=== PATIENT | female | born 1950 | race Caucasian/White ===

== ENCOUNTER 2024-04-04 18:47 | Inpatient (IN) | payer MEDICARE, SELFPAY ==
[2024-04-04] VITALS (20 sets, daily range): BP systolic 69–117; BP diastolic 42–69; PULSE 54–128; RESP 12–21; TEMP 36.4–36.7; O2SAT 94–100; BMI 24.7; BMI 25.4
--- NOTE | 2024-04-04 18:59 | EKG12_ITS ---
Test Reason : CP Blood Pressure : / mmHG Vent. Rate : 123 BPM Atrial Rate : 000 BPM P-R Int : 000 ms QRS Dur : 090 ms QT Int : 384 ms P-R-T Axes : 000 032 -18 degrees QTc Int : 549 ms Atrial fibrillation with rapid ventricular response with premature ventricular or aberrantly conducte d complexes Nonspecific ST and T wave abnormality Abnormal ECG Confirmed by Anselmo Cote ([id number]), editor managing newspaper YUSRA ALCANTARA ([id number]) on 04/06/2024 8:00:46 AM Referred By: RICHARD Confirmed By:Anselmo Cote
--- NOTE | 2024-04-04 19:04 | EX.ED.DYSGE1 ---
HPI <CLAUDIA Hyde - Last Filed: 04/04/24 21:13> History of Present Illness Chief Complaint: Chest Pain Narrative Narrative: 73-year-old female with past medical history of hypertension, hyperlipidemia states she has felt ill for about a week. She is tired and lightheaded with positional changes. Yesterday she had one large episode of loose stools. Today she was feeling more lightheaded and states she fell onto the bathroom floor and when she woke up she was sore in her sternum. She was able to get up and ambulate and when her children visited she did not look well and was sweaty and pale so they called EMS. She states she has not been eating and drinking much and did not take her medication this morning. No blood thinners. She reports anterior chest pain only from the fall. No shortness of breath. No recent fever, chills, cough, abdominal pain or urinary symptoms. PFSH <CLAUDIA Hyde - Last Filed: 04/04/24 21:13> [facility] Home Medications ?Medication ?Instructions ?Recorded ?Last Taken ?Type amlodipine 5 mg tablet 5 mg PO DAILY htn 04/04/24 Unknown History lisinopril 20 mg tablet 20 mg PO DAILY htn 04/04/24 Unknown History Allergy/AdvReac Type Severity Reaction Status Date / Time No Known Allergies Allergy Verified 04/04/24 18:51 Social History Smoking Status: Never smoker ROS <CLAUDIA Hyde Last Filed: 04/04/24 21:13> ROS ED ROS Narrative Constitutional: Negative for fever, chills. CVS: Positive for syncope. Negative for palpitations, chest pain. Respiratory: Negative for shortness of breath, cough. GI: Positive for diarrhea. Negative for abdominal pain, nausea, vomiting, melena, hematochezia. : Negative for dysuria. Neuro: Negative for headache. EXAM <CLAUDIA Hyde Last Filed: 04/04/24 21:13> Physical Exam Narrative Exam Narrative: CONST: Patient lying in bed appears pale in no distress. EYES: Normal inspection. ENT: Normal inspection, moist mucous membranes. NECK: Normal inspection. RESP: No respiratory distress, CTAB. CVS: Tachycardic irregularly irregular rhythm, no murmur, no gallop. ABD: Soft and nontender, no guarding or rebound, nondistended. SKIN: Color normal, no rash, warm, dry, intact. EXTREMITIES: Normal appearance, no pedal edema. NEURO: Alert and answering questions appropriately. PSYCH: Normal affect. Const Vital Signs: 04/04/24 18:48 04/04/24 18:51 04/04/24 19:26 Temperature 97.6 F L Temperature Source Oral Pulse Rate 128 H 99 Respiratory Rate 18 14 Respiratory Effort Normal Blood Pressure 94/44 L Blood Pressure Mean 60 Pulse Ox 94 100 Oxygen Delivery Method Room Air 04/04/24 19:30 04/04/24 19:45 04/04/24 19:47 Temperature Temperature Source Pulse Rate 88 91 104 H Respiratory Rate 15 14 15 Respiratory Effort Blood Pressure 100/48 L 96/60 96/60 Blood Pressure Mean 65 69 72 Pulse Ox 100 98 100 Oxygen Delivery Method Nasal Cannula 04/04/24 20:00 04/04/24 20:00 04/04/24 20:15 Temperature Temperature Source Pulse Rate 103 H 88 111 H Respiratory Rate 19 H 14 15 Respiratory Effort Blood Pressure 90/42 L 92/43 L 90/42 L Blood Pressure Mean 58 57 58 Pulse Ox 100 100 100 Oxygen Delivery Method Room Air 04/04/24 20:30 04/04/24 20:33 04/04/24 20:45 Temperature 97.7 F L Temperature Source Pulse Rate 101 H 93 107 H Respiratory Rate 13 13 16 Respiratory Effort Blood Pressure 76/59 L 76/59 L Blood Pressure Mean 67 64 Pulse Ox 100 100 Oxygen Delivery Method 04/04/24 20:46 04/04/24 20:46 Temperature Temperature Source Pulse Rate 101 H 112 H Respiratory Rate 19 H 16 Respiratory Effort Blood Pressure 81/69 L 81/65 L Blood Pressure Mean 73 73 Pulse Ox 98 100 Oxygen Delivery Method Nasal Cannula <Dr. David Fong MD - Last Filed: 04/04/24 20:21> Physical Exam Const Vital Signs: 04/04/24 18:48 04/04/24 18:51 04/04/24 19:26 Temperature 97.6 F L Temperature Source Oral Pulse Rate 128 H 99 Respiratory Rate 18 14 Respiratory Effort Normal Blood Pressure 94/44 L Blood Pressure Mean 60 Pulse Ox 94 100 Oxygen Delivery Method Room Air 04/04/24 19:30 04/04/24 19:45 04/04/24 19:47 Temperature Temperature Source Pulse Rate 88 91 104 H Respiratory Rate 15 14 15 Respiratory Effort Blood Pressure 100/48 L 96/60 96/60 Blood Pressure Mean 65 69 72 Pulse Ox 100 98 100 Oxygen Delivery Method Nasal Cannula 04/04/24 20:00 04/04/24 20:00 04/04/24 20:15 Temperature Temperature Source Pulse Rate 103 H 88 111 H Respiratory Rate 19 H 14 15 Respiratory Effort Blood Pressure 90/42 L 92/43 L 90/42 L Blood Pressure Mean 58 57 58 Pulse Ox 100 100 100 Oxygen Delivery Method Room Air 04/04/24 20:30 04/04/24 20:33 04/04/24 20:45 Temperature 97.7 F L Temperature Source Pulse Rate 101 H 93 107 H Respiratory Rate 13 13 16 Respiratory Effort Blood Pressure 76/59 L 76/59 L Blood Pressure Mean 67 64 Pulse Ox 100 100 Oxygen Delivery Method 04/04/24 20:46 04/04/24 20:46 Temperature Temperature Source Pulse Rate 101 H 112 H Respiratory Rate 19 H 16 Respiratory Effort Blood Pressure 81/69 L 81/65 L Blood Pressure Mean 73 73 Pulse Ox 98 100 Oxygen Delivery Method Nasal Cannula [facility] <CLAUDIA Hyde - Last Filed: 04/04/24 21:13> [facility] Narrative Medical decision making narrative: History gathered from: Patient and EMS Differential: Cardiac arrhythmia, electrolyte abnormality, ACS Patient has not felt well for a week. Today she felt lightheaded and had a syncopal episode in the bathroom and complains of lower sternal pain from the fall. No significant head injury. No blood thinners. She has been ambulatory since the event. She is awake alert in no distress. BP 94/44, she is in A-fib RVR in the 140s which is new, otherwise stable vital signs. She was on 4 L nasal cannula when I entered the room but she denies dyspnea on the nurses states she was never hypoxic so I returned to room air and she is maintaining 94%. IV fluids are running and she was ordered IV Cardizem 20 mg bolus to be given slowly with blood pressure monitoring. WBC is 12.5, mild anemia with hemoglobin of 11.1, normal platelets. Sodium 134, hypokalemia at 2.5, normal magnesium at 2.6. TSH WNL. Troponin minimally elevated at 58. No active chest pain. Likely stress from new onset A-fib RVR. After 1 L IV fluids and Cardizem bolus she is A-fib in the 90s with blood pressure of 95/60. She was given IV and p.o. potassium as well. She was reassessed at 8:30 PM and looks well and is stable. Case was discussed with the hospitalist for admission. The nurse noticed patient converted to sinus rhythm. Repeat EKG at 2055 shows sinus bradycardia at 57 bpm. She became more hypotensive with systolic readings in the 70?80s while second liter of IV fluids is running. The hospitalist is now putting patient in the ICU. I have personally performed a face to face assessment of the patient and have reviewed the CELSO Note. I performed a substantive portion of the visit including all aspects of the following. My simental findings include: History is 73-year-old female no prior cardiac history or surgery. Patient felt well for about a week. Today she felt lightheaded and fell in her bathroom. Thinks she may have struck her chest. Did not have any significant head injury. No LOC. She was able to get up on her own. She is not on any blood thinners. She denies any recent vomiting. She has had some loose stools last several days. No thyroid history. Exam is [71-year-old female initial blood pressure 94/44 with a pulse of 128. She is in A-fib RVR on the monitor. HEENT exam pupils round react to light. No trauma to her face or scalp. Nontender. Neck nontender. Back nontender. No signs of trauma. Lungs clear to auscultation. Heart irregular irregular rate about 125 no murmur. Chest wall and ribs are nontender except for some mild lower sternal tenderness but there is no ecchymosis or bruising. No crepitus. Abdomen is soft and nontender. Pelvic girdle intact. Moving all 4 extremities. Normal last repairer helper strength. Normal range of motion. Hips are nontender. No shortening or rotation. Dorsi and plantarflexion intact. Neurologically she is awake and alert. Answering questions following commands. No focal motor deficits.] Medical Decision Making [73-year-old with A-fib RVR hypotensive. Probably mildly dehydrated from her recent diarrhea. She will receive IV fluids Cardizem for A-fib cardiac workup and admitted.] Other additions or changes: [None] Lab Data Attestation: I reviewed the patient's lab results. Labs: Laboratory Results - last 24 hr 04/04/24 04/04/24 19:23 20:03 WBC 12.5 H RBC 4.46 Hgb 11.1 L Hct 34.7 L MCV 77.8 L MCH 24.9 L MCHC 32.0 RDW Std Deviation 48.4 H RDW Coeff of Deep 17.2 H Plt Count 285 MPV 11.4 Immature Gran % (Auto) 0.400 Neut % (Auto) 84.0 H Lymph % (Auto) 7.1 L [place] % (Auto) 8.1 Eos % (Auto) 0.2 Baso % (Auto) 0.2 Absolute Neuts (auto) 10.5 H Absolute Lymphs (auto) 0.88 Nucleated RBC % 0 Sodium 134 L Potassium 2.5 L* Chloride 102 Carbon Dioxide 20.0 L Anion Gap 12 BUN 49 H Creatinine 1.83 H Estim Creat Clear Calc 27.02 Est GFR (MDRD) Af Amer 35 L Est GFR (MDRD) Non-Af 29 L BUN/Creatinine Ratio 26.8 H Glucose 129 H Calcium 7.6 L Magnesium 2.6 Troponin I High Sens 58 H TSH 3.62 Urine Color Yellow Urine Clarity Clear Urine pH 6.0 Ur Specific [place] 1.015 Urine Protein 15 H Urine Glucose (UA) Normal Urine Ketones 15 H Urine Occult Blood Negative Urine Nitrite Negative Urine Bilirubin Negative Urine Urobilinogen Normal Ur Leukocyte Esterase Negative Urine RBC 0 SEEN Urine WBC 0 SEEN Ur Squamous Epith Cells 0-5 SEEN Urine Bacteria 0 SEEN Urine Mucus 0 SEEN Radiography Diagnostic Testing: Clinical Impression(s) from Imaging Studies Chest X-Ray 04/04/24 19:30 IMPRESSION: Hiatal hernia. Electronically Signed: Phillip Monahan DO at 19:41 EDT Reading Location ID and State: [facility] / [place] Tel [phone], Service support , EKG Initial EKG: Attestation: I personally reviewed and interpreted this EKG as follows: Interpretation: Atrial Fibrillation Comments: A-fib RVR at [address] changes <Dr. David Fong MD - Last Filed: 04/04/24 20:21> MDM MDM Narrative Medical decision making narrative: I have personally performed a face to face assessment of the patient and have reviewed the CELSO Note. I performed a substantive portion of the visit including all aspects of the following. My simental findings include: History is 73-year-old female no prior cardiac history or surgery. Patient felt well for about a week. Today she felt lightheaded and fell in her bathroom. Thinks she may have struck her chest. Did not have any significant head injury. No LOC. She was able to get up on her own. She is not on any blood thinners. She denies any recent vomiting. She has had some loose stools last several days. No thyroid history. Exam is [71-year-old female initial blood pressure 94/44 with a pulse of 128. She is in A-fib RVR on the monitor. HEENT exam pupils round react to light. No trauma to her face or scalp. Nontender. Neck nontender. Back nontender. No signs of trauma. Lungs clear to auscultation. Heart irregular irregular rate about 125 no murmur. Chest wall and ribs are nontender except for some mild lower sternal tenderness but there is no ecchymosis or bruising. No crepitus. Abdomen is soft and nontender. Pelvic girdle intact. Moving all 4 extremities. Normal last repairer helper strength. Normal range of motion. Hips are nontender. No shortening or rotation. Dorsi and plantarflexion intact. Neurologically she is awake and alert. Answering questions following commands. No focal motor deficits.] Medical Decision Making [73-year-old with A-fib RVR hypotensive. Probably mildly dehydrated from her recent diarrhea. She will receive IV fluids Cardizem for A-fib cardiac workup and admitted.] Other additions or changes: [None] Lab Data Labs: Laboratory Results - last 24 hr 04/04/24 04/04/24 19:23 20:03 WBC 12.5 H RBC 4.46 Hgb 11.1 L Hct 34.7 L MCV 77.8 L MCH 24.9 L MCHC 32.0 RDW Std Deviation 48.4 H RDW Coeff of Deep 17.2 H Plt Count 285 MPV 11.4 Immature Gran % (Auto) 0.400 Neut % (Auto) 84.0 H Lymph % (Auto) 7.1 L [place] % (Auto) 8.1 Eos % (Auto) 0.2 Baso % (Auto) 0.2 Absolute Neuts (auto) 10.5 H Absolute Lymphs (auto) 0.88 Nucleated RBC % 0 Sodium 134 L Potassium 2.5 L* Chloride 102 Carbon Dioxide 20.0 L Anion Gap 12 BUN 49 H Creatinine 1.83 H Estim Creat Clear Calc 27.02 Est GFR (MDRD) Af Amer 35 L Est GFR (MDRD) Non-Af 29 L BUN/Creatinine Ratio 26.8 H Glucose 129 H Calcium 7.6 L Magnesium 2.6 Troponin I High Sens 58 H TSH 3.62 Urine Color Yellow Urine Clarity Clear Urine pH 6.0 Ur Specific [place] 1.015 Urine Protein 15 H Urine Glucose (UA) Normal Urine Ketones 15 H Urine Occult Blood Negative Urine Nitrite Negative Urine Bilirubin Negative Urine Urobilinogen Normal Ur Leukocyte Esterase Negative Urine RBC 0 SEEN Urine WBC 0 SEEN Ur Squamous Epith Cells 0-5 SEEN Urine Bacteria 0 SEEN Urine Mucus 0 SEEN Radiography Chest X-Ray - ED: 1 View, Read by Radiologist, Normal, Heart, Lungs, Mediastinum, Bony Structures, No Acute Disease and Chronic Changes Diagnostic Testing: Clinical Impression(s) from Imaging Studies Chest X-Ray 04/04/24 19:30 IMPRESSION: Hiatal hernia. Electronically Signed: Phillip Monahan DO at 19:41 EDT Reading Location ID and State: [facility] / [place] Tel [phone], Service support , Chest, portable, single view interpreted by myself the radiologist shows no acute abnormality. Hatle hernia. <Dr. David Fong MD - Last Filed: 04/04/24 20:21> Critical Care Time Critical Care Time: Yes Critical care time (excluding procedures): 30-74 minutes, Including time spent:, Discussing w/Patient &/or Family/Research Investigator, Discussing w/Consultants, Arranging Admission or Transfer, Performing Direct Patient Care at Bedside and - (40 minutes.) Discharge Plan Dx/Rx/DC Orders Clinical Impression: Atrial fibrillation with RVR, Syncope, Acute hypokalemia, Acute hypotension, Acute dehydration, Acute kidney injury, Diarrhea Disposition Disposition: [facility]
[2024-04-04] MEDS: dilTIAZem 25 MG/5 ML Vial 20 MG IV BOLUS (19:07)
[2024-04-04] MEDS: 0.9% Normal Saline (1000mL) 1,000 ML 1000 ML IV (19:07)
--- NOTE | 2024-04-04 19:30 | RAD_ITS ---
INDICATION: weakness EXAMINATION/TECHNIQUE: X-RAY - XR Chest 1 View COMPARISON: FINDINGS: LINES/DEVICES: None. LUNGS: No consolidation, edema or effusion. No pneumothorax. MEDIASTINUM AND CARDIOVASCULAR STRUCTURES: Cardiac silhouette not enlarged. Central airways and mediastinal contour are unremarkable. BONES AND SOFT TISSUES: Unremarkable. Hiatal hernia. RAD/Chest 1 View (Portable) IMPRESSION: Hiatal hernia. Electronically Signed: Phillip Monahan DO at 19:41 EDT ,
[2024-04-04 19:37] LABS: Absolute Lymphocyte Count 0.88 X10^3/uL (0.83-4.51); Absolute Neutrophil Count 10.5 X10^3/uL (2.0-7.7); Basophil# 0.02 X10^3/uL; Basophil% 0.2 % (0-1); Eosinophil# 0.02 X10^3/uL; Eosinophils% 0.2 % (0-5); Hematocrit 34.7 % (37-47); Hemoglobin 11.1 g/dL (12.0-15.0); Lymphocyte # 0.88 X10^3/ul (0.83-4.51); Lymphocyte % 7.1 % (19-41); Mean Corpuscular Hgb 24.9 pg (27.0-32.0); Mean Corpuscular Volume 77.8 fL (81-99); Mean Platelet Vol. 11.4 fl (6.2-12.0); Monocyte# 1.01 X10^3/uL; Monocyte% 8.1 % (0-10); NRBC Flagged by Analyzer 0 % (0-5); Platelet Count 285 K/mm3 (150-450); RBC Distribution Width CV 17.2 % (11.6-14.6); RBC Distribution Width SD 48.4 fl (35.1-43.9); Red Blood Count 4.46 M/mm3 (4.2-5.4); White Blood Count 12.5 K/mm3 (4.4-11.0)
[2024-04-04 20:04] LABS: Anion Gap 12 (5-15); BUN 49 mg/dL (7-18); BUN/Creat Ratio 26.8 RATIO (10-20); Calcium,Total 7.6 mg/dL (8.5-10.1); Chloride 102 mmol/L (98-107); Creatinine, Serum 1.83 mg/dL (0.55-1.02); EST Glomerular Filtration Rate 29 mL/min (>60); Est Glom Filt Rate - Afr Amer 35 mL/min (>60); Estimated Creatinine Clearance 27.02 ml/min; Glucose 129 mg/dL (74-106); Potassium 2.5 mmol/L (3.5-5.1); Sodium Level 134 mmol/L (136-145); Thyroid Stim Hormone (TSH) 3.62 uIU/mL (0.358-3.74); Troponin-I HS 58 pg/mL (3.0-54.0)
[2024-04-04 20:06] LABS: Bacteria 0 SEEN /hpf (None Seen); Mucous, Urine 0 SEEN /hpf (<or=2+); Red Blood Cells-Urine 0 SEEN /hpf (0-5); White Blood Cells 0 SEEN /hpf (0-5)
[2024-04-04 20:10] LABS: Color, Urine Yellow (Yellow); Glucose, Dipstick Normal (Normal); Ketone-Dipstick 15 mg/dl (Negative); Leukocyte Esterase-Dipstick Negative /ul (Negative); Nitrite-Dipstick Negative (Negative); Occult Blood-Urine Negative /ul (Negative); Protein-Dipstick 15 mg/dl (Negative); Specific Gravity, Urine 1.015 (1.002-1.030); Urine Bilirubin Dipstick Negative (Negative); Urine Clarity Clear (Clear); Urine Urobilinogen Normal (Normal)
--- NOTE | 2024-04-04 20:14 | HP.PCM.HOS_ITS ---
HPI - General General Date of Admission: 04/04/24 Date of Service: 04/04/24 Chief Complaint: Chest Pain after Syncope. HPI Narrative ADAL FRIDAY, is a 73 F with a past medical history of essential hypertension, hyperlipidemia and OA who presents to [facility] ER complaining of chest pain after her syncopal event. Friday reports her symptoms began approximately one week prior to admission with her generally feeling ill and increasingly fatigued with a constant feeling of tiredness and lightheadedness with positional changes. Then yesterday she had one large episode of loose stools with worsening lightheadedness causing her to fall onto the bathroom floor with a LOC and when she woke up on the floor she noted soreness over her sternum. Her children then came to her house to check on her and when they noted she was pale and diaphoretic they activated EMS. She admits to poor appetite with a sharp decrease in her oral intake over the last few days and she also did not take her prescribed medications this morning due to her worsening condition. She admits to musculoskeletal chest pain from the fall only with the residual soreness in her sternum but she denies anginal-type chest pain. She denies associated fever, chills, cough, abdominal pain, dysuria, headache or blood in stools/urine, recent sick contacts or recent significant travel. In the ER she was noted to have electrocardiographic evidence of Atrial Fibrillation with RVR @ ~140 bpm requiring initial treatment with IV Cardizem complicated by laboratory evidence of Hypokalemia of 2.5 mmol/L and Hypophosphatemia of 1.8 mmol/L present on admission and suspected ARF due to Dehydration due to Diarrhea with elevated serum creatinine of 1.83 mg/dL present on admission (with no baseline labs available for comparison) with corresponding symptomatic hypotension of 94/44 mmHg with positive orthostatics compounded by syncopal event with sternal contusion and residual anterior chest soreness and she was then admitted to the PCU for ongoing care for a stay that is expected to extend beyond 2 midnights. [facility] Home Medications ?Medication ?Instructions ?Recorded ?Last Taken ?Type amlodipine 5 mg tablet 5 mg PO DAILY htn 04/04/24 Unknown History lisinopril 20 mg tablet 20 mg PO DAILY htn 04/04/24 Unknown History Allergy/AdvReac Type Severity Reaction Status Date / Time No Known Allergies Allergy Verified 04/04/24 18:51 Social History Smoking Status: Never smoker ROS ROS Narrative Review of systems: General: Patient denies fever or chills. HENT: Denies headache, denies stuffy nose, denies sore throat EYES: Denies changes in vision or discharge from eyes. Resp: Denies cough, denies shortness of breath Cardiac: Patient admits to syncopal event. Negative for palpitations or chest pain. GI: Patient admits to diarrhea but she denies abdominal pain, denies changes in bowel, denies nausea or vomiting. : Denies changes in urination Extremity: Denies swelling Musculoskeletal: Feels somewhat generally weak and unwell but denies arthralgias or myalgias. Neuro: Patient denies headache, paresthesias or focal neurologic deficits. Heme: Denies any bleeding or bruising Skin: Denies rashes Psychiatric: No complaints voiced related to uncontrolled depression or anxiety. Endocrine: No polyuria, polydipsia or polyphagia. The rest of the 14 point ROS was negative except for positives in HPI. Vital Signs Vital Signs Vital Signs: 04/04/24 18:48 04/04/24 18:51 04/04/24 19:47 Temperature 97.6 F L Temperature Source Oral Pulse Rate 128 H 104 H Respiratory Rate 18 15 Respiratory Effort Normal Blood Pressure 94/44 L 96/60 Blood Pressure Mean 60 72 Pulse Ox 94 100 Oxygen Delivery Method Room Air Nasal Cannula Weight Weight: 158 lb 1.6 oz Body Mass Index (BMI) 24.7 Physical Exam Const alert, oriented x3, no apparent distress and average body habitus Constitutional Narrative: Patient appears ill. General Appearance: cooperative HEENT normocephalic, head/scalp atraumatic and hearing grossly normal bilaterally HEENT Narrative: Mucous membranes dry. Eyes PERRL and EOMs intact bilaterally Neck no lymphadenopathy and supple Resp normal respiratory effort, no retractions, no use of accessory muscles and clear to auscultation bilaterally Cardio Cardio Narrative: Irregularly irregular @ ~104 bpm on IV Cardizem. GI normal to inspection, nondistended, normoactive bowel sounds, soft to palpation, non-tender and non-distended Extremity normal to inspection and full ROM Skin Skin Narrative: Patient has no evidence of abscess, jaundice or rash. Neuro oriented x3, CN's II-XII intact bilaterally, moves all extremities and no focal motor deficits Sensorium / Orientation: awake, alert, oriented to person, oriented to place and oriented to time Speech: speech normal Psych affect normal Results Medical Records Data Attestation: I reviewed the patient's medical records Lab / Micro Data Attestation: I reviewed the patient's lab results. 04/05/24 03:15 04/05/24 03:15 Labs: Laboratory Results - last 24 hr 04/04/24 19:23: WBC 12.5 H, RBC 4.46, Hgb 11.1 L, Hct 34.7 L, MCV 77.8 L, MCH 24.9 L, MCHC 32.0, RDW Std Deviation 48.4 H, RDW Coeff of Deep 17.2 H, Plt Count 285, MPV 11.4, Immature Gran % (Auto) 0.400, Neut % (Auto) 84.0 H, Lymph % (Auto) 7.1 L, [place] % (Auto) 8.1, Eos % (Auto) 0.2, Baso % (Auto) 0.2, Absolute Neuts (auto) 10.5 H, Absolute Lymphs (auto) 0.88, Nucleated RBC % 0, Sodium 134 L, Potassium 2.5 L*, Chloride 102, Carbon Dioxide 20.0 L, Anion Gap 12, BUN 49 H , Creatinine 1.83 H, Estim Creat Clear Calc 27.02, Est GFR (MDRD) Af Amer 35 L, Est GFR (MDRD) Non-Af 29 L, BUN/Creatinine Ratio 26.8 H, Glucose 129 H, Calcium 7.6 L, Troponin I High Sens 58 H, TSH 3.62 Imaging Radiology Impression Chest X-Ray 04/04/24 19:30 IMPRESSION: Hiatal hernia. Electronically Signed: Phillip Monahan DO at 19:41 EDT Reading Location ID and State: [facility] / [place] Tel [phone], Service support , Assessment & Plan Assessment/Plan (1) Atrial fibrillation with RVR: (2) Syncope: QUALIFIERS: Syncope type: unspecified Qualified Code(s): R55 - Syncope and collapse (3) Acute hypokalemia: (4) Hypophosphatasia: (5) Acute kidney injury: (6) Acute dehydration: (7) Diarrhea: QUALIFIERS: Diarrhea type: presumed infectious Qualified Code(s): R19.7 - Diarrhea, unspecified (8) Acute hypotension: PLAN: Plan 1. Atrial Fibrillation with RVR @ ~140 bpm with Orthostatic Hypotension and Syncopal Event - Admit to ICU. Wean off IV Cardizem with persistent hypotension in favor of prn IV Digoxin to keep HR < 100 bpm. Start full-dose Lovenox for CVA prophylaxis. Check echocardiogram to evaluate LVEF. Gently volume resuscitate. Mildly elevated troponin of 58 pg/mL present on admission likely due to a combination of acute strain and recent LOC with sternal contusion therefore we will serialize troponin and study echo to evaluate for potential wall-motion abnormalities after trauma. Check carotid doppler to evaluate for stenosis as a possible cause or contributing factor in syncopal event. Give Tylenol prn pain or fever. Finally, patient converted back to NSR just prior to leaving the ER but her blood pressure was still low in the ~90 mmHg range. 2. Hypokalemia of 2.5 mmol/L and Hypophosphatemia of 1.8 mmol/L present on admission promoting #1 - Give supplemental K-Phos IV and then recheck CMP in the AM to ensure improvement. 3. Suspected ARF due to Dehydration after recent nonbloody Diarrhea with elevated serum creatinine of 1.83 mg/dL and BUN of 49 mg/dL present on admission complicating #1 & #2 - Volume resuscitate and recheck renal indices in the AM to ensure improvement. Check stool studies to evaluate for potential underlying infectious etiology. Avoid potentially nephrotoxic agents. 4. Poor appetite for multiple days with decreased oral intake suspicious for possible protein calorie malnutrition - Check prealbumin and prealbumin to confirm suspicion. 5. Essential Hypertension - Hold scheduled antihypertensives in light of #1. 6. Hyperlipidemia - Check lipid profile. 7. DVT prophylaxis - Patient on full-dose Lovenox for #1. Total time: Approximately 75 minutes. Charges/Coding Visit Charges Inpatient E&M: 77018 Init Hosp L3
[2024-04-04 20:20] LABS: Squamous Epithelial Cells - UA 0-5 SEEN /hpf (5-10)
[2024-04-04 20:25] LABS: Magnesium 2.6 mg/dL (1.6-2.6)
[2024-04-04] MEDS: Potassium Chloride 10mEq/100mL 10 MEQ/100 ML IV.SOLN. 100 MEQ IV BOLUS ×2 (20:40→21:45)
[2024-04-04] MEDS: Potassium Chloride Oral Tablet 20 MEQ PO (20:40)
[2024-04-04] MEDS: 0.9% Normal Saline (1000mL) 1,000 ML 999 ML IV (20:49)
--- NOTE | 2024-04-04 21:15 | ECHOD_ITS ---
Reason For Study: AFIB Procedure This was a 2D Doppler, Color Flow transthoracic echocardiogram. Exam performed portable in ICU/CCU. Left Ventricle Normal LV size. Mild concentric left ventricular hypertrophy. The left ventricular ejection fraction is 60 %. Normal diastology for age. Right Ventricle Normal right ventricle. Atria There is mild biatrial dilatation. Mitral Valve Trivial mitral valve insufficiency. Tricuspid Valve Moderate (2+) tricuspid valve insufficiency. Right ventricular systolic pressure estimated to be 57 mmHg. Aortic Valve Trivial aortic valve insufficiency. Pulmonic Valve The pulmonic valve is not well visualized. Great Vessels Normal sized aortic root. Pericardium/Pleural No pericardial effusion. MMode/2D Measurements & Calculations LVIDd: 4.1 cm IVSd: 1.2 cm Ao root diam: 3.3 cm LVIDs: 3.0 cm LVPWd: 1.4 cm RVDd: 3.4 cm FS: 26.2 % LAV(MOD-bp): 52.6 ml LVAd ap4: 21.2 cm2 SV(MOD-sp4): 32.9 ml LAV(MOD-bp) Indexed: 29.2 ml/m2 LVLd ap4: 6.4 cm LAV(MOD-sp2): 46.1 ml EDV(MOD-sp4): 59.2 ml LAV(MOD-sp4): 60.6 ml EDV(sp4-el): 59.7 ml LVAs ap4: 12.8 cm2 LVLs ap4: 5.7 cm ESV(MOD-sp4): 26.3 ml ESV(sp4-el): 24.4 ml EF(MOD-sp4): 55.6 % EF(sp4-el): 59.1 % SV(sp4-el): 35.3 ml LA A4 area: 21.3 cm2 LA dimension(2D): 3.4 cm RA A4 area: 17.5 cm2 TAPSE: 2.1 cm Time Measurements MV dec time: 0.23 sec Doppler Measurements & Calculations MV E max gregory: 71.5 cm/sec Lat Peak E' Gregory: 10.0 cm/sec Med Peak E' Gregory: 8.7 cm/sec MV A max gregory: 48.5 cm/sec E/E' lat: 7.2 E/E' med: 8.2 MV E/A: 1.5 MV V2 max: 81.8 cm/sec Ao V2 max: 166.4 cm/sec MV max P.7 mmHg MV dec slope: 315.1 cm/sec2 Ao max P.1 mmHg MV V2 mean: 50.3 cm/sec Ao V2 mean: 105.6 cm/sec MV mean P.1 mmHg Ao mean P.2 mmHg MV V2 VTI: 25.4 cm Ao V2 VTI: 31.4 cm AV (velocity ratio): 0.74 LV V1 max: 118.3 cm/sec PA V2 max: 107.4 cm/sec TR max gregory: 322.7 cm/sec LV V1 max P.6 mmHg PA V2 mean: 67.9 cm/sec TR max P.7 mmHg LV V1 mean P.7 mmHg LV V1 mean: 76.1 cm/sec LV V1 VTI: 23.2 cm ECHO/Echo Complete Interpretation Summary Mild concentric left ventricular hypertrophy. The left ventricular ejection fraction is 60 %. There is mild biatrial dilatation. Moderate (2+) tricuspid valve insufficiency. Right ventricular systolic pressure estimated to be 57 mmHg. Ordering Physician: Alexandre So Referring Physician: LIDIA NIETO Performed By: Flory Vitale RCS
--- NOTE | 2024-04-04 21:37 | EKG12_ITS ---
Test Reason : REPEAT Blood Pressure : / mmHG Vent. Rate : 057 BPM Atrial Rate : 057 BPM P-R Int : 136 ms QRS Dur : 080 ms QT Int : 514 ms P-R-T Axes : 035 013 -05 degrees QTc Int : 500 ms Sinus bradycardia Possible Left atrial enlargement Nonspecific ST abnormality Prolonged QT Abnormal ECG Confirmed by Anselmo Cote ([id number]), editor house organ YUSRA ALCANTARA ([id number]) on 04/06/2024 8:01:12 AM Referred By: Confirmed By:Anselmo Cote
[2024-04-04 22:04] LABS: Cholesterol 54 mg/dL (200); High Density Lipoprotein 23 mg/dL; Prealbumin 7.9 mg/dL (20.0-40.0); Triglycerides 69 mg/dL; Troponin-I HS 33 pg/mL (3.0-54.0); Very Low Density Lipoprotein 14 mg/dL (5-40)
[2024-04-04] MEDS: Potassium Chloride Oral Tablet 20 MEQ 60 MEQ PO (22:39)
[2024-04-04] MEDS: 0.9% Saline Lock 10 ML Syringe IV (22:41)
[2024-04-04] MEDS: Enoxaparin 80 MG/0.8 ML Syringe 70 MG SC (22:42)
[2024-04-04] MEDS: KCl 20MEQ in D5NS 20 MEQ/1,000 ML IV.SOLN. 70 MEQ IV (22:43)
[2024-04-05] VITALS (16 sets, daily range): BP systolic 99–118; BP diastolic 42–90; PULSE 61–85; RESP 13–23; TEMP 36.6–37; O2SAT 94–100; BMI 25.5
--- NOTE | 2024-04-05 01:27 | CDU_ITS ---
Reason For Study: Syncope Rt. Velocities/BP Lt. Velocities/BP Prox CCA 73/13 cm/sec. Prox CCA 103/12 cm/sec. Mid CCA 75/20 cm/sec. Mid CCA 100/18 cm/sec. Dist CCA 111/25 cm/sec. Dist CCA 103/19 cm/sec. Prox ICA 167/32 cm/sec. Prox ICA 57/10 cm/sec. Mid ICA 144/34 cm/sec. Mid ICA 100/23 cm/sec. Dist ICA 134/34 cm/sec. Dist ICA 101/27 cm/sec. Rt. ICA/CCA = 2.2. Lt. ICA/CCA = 1.0. Prox ECA 85 cm/sec. Prox ECA 101/6 cm/sec. Rt. Vert. 83/22 cm/sec. Lt. Vert. 71/20 cm/sec. Right Extracranial There is heterogeneous, irregular atherosclerotic plaque noted in the right common carotid artery. There is heterogeneous, irregular atherosclerotic plaque noted in the right internal carotid artery. There is no significant atherosclerotic plaque noted in the right external carotid artery. Antegrade flow is noted in the right vertebral artery. Left Extracranial There is heterogeneous, irregular atherosclerotic plaque noted in the left common carotid artery. There is heterogeneous, irregular atherosclerotic plaque noted in the left internal carotid artery. There is heterogeneous, irregular atherosclerotic plaque noted in the left external carotid artery. Antegrade flow is noted in the left vertebral artery. Procedure Carotid Duplex 22627. This is a Carotid Duplex examination using B-mode, color flow and specral Doppler. Exam performed portable in ICU/CCU. VL/Carotid Duplex Ultrasound Interpretation Summary Irregular plaque with shadowing at the proximal right internal carotid artery w ith less than 50% stenosis. Close to the 50% range. Less than 50% stenosis right external carotid artery Irregular plaque at the proximal left internal carotid artery with less than 50 % stenosis Less than 50% stenosis left external carotid artery Patent and antegrade vertebral arteries bilaterally Ordering Physician: Alexandre So Referring Physician: Elian Echols Performed By: Ameena Muñoz, ANSHUL, RVT
[2024-04-05 03:25] LABS: Absolute Neutrophil Count 8.4 X10^3/uL (2.0-7.7); Basophil# 0.04 X10^3/uL; Basophil% 0.4 % (0-1); Eosinophil# 0.15 X10^3/uL; Eosinophils% 1.3 % (0-5); Hematocrit 33.4 % (37-47); Hemoglobin 10.6 g/dL (12.0-15.0); Lymphocyte % 13.4 % (19-41); Mean Corp Hgb Conc 31.7 g/dL (32-36); Mean Corpuscular Hgb 24.8 pg (27.0-32.0); Mean Corpuscular Volume 78.2 fL (81-99); Mean Platelet Vol. 10.6 fl (6.2-12.0); Monocyte# 1.04 X10^3/uL; Monocyte% 9.3 % (0-10); NRBC Flagged by Analyzer 0 % (0-5); Neutrophil # 8.41 X10^3/uL (2.7-7.7); Neutrophil % 75.2 % (47-70); Platelet Count 253 K/mm3 (150-450); RBC Distribution Width CV 17.4 % (11.6-14.6); RBC Distribution Width SD 49.1 fl (35.1-43.9); Red Blood Count 4.27 M/mm3 (4.2-5.4); White Blood Count 11.2 K/mm3 (4.4-11.0)
[2024-04-05 04:01] LABS: ALB/GLOB Ratio 1.1 RATIO (0.9-2.4); AST(SGOT) 13 U/L (15-37); Alanine Aminotransfer ALT/SGPT 16 U/L (13-56); Albumin, Serum 2.9 g/dL (3.2-5.0); Alkaline Phosphatase 58 U/L (45-117); Anion Gap 7 (5-15); BUN 41 mg/dL (7-18); BUN/Creat Ratio 30.6 RATIO (10-20); Calcium,Total 7.4 mg/dL (8.5-10.1); Chloride 110 mmol/L (98-107); Creatinine, Serum 1.34 mg/dL (0.55-1.02); EST Glomerular Filtration Rate 41 mL/min (>60); Est Glom Filt Rate - Afr Amer 50 mL/min (>60); Estimated Creatinine Clearance 37.12 ml/min; Globulin 2.7 g/dL (2.2-4.2); Glucose 116 mg/dL (74-106); Magnesium 2.3 mg/dL (1.6-2.6); Phosphorus 1.8 mg/dL (2.5-4.9); Potassium 3.8 mmol/L (3.5-5.1); Protein, Total 5.6 g/dL (6.4-8.2); Sodium Level 137 mmol/L (136-145); Thyroid Stim Hormone (TSH) 1.66 uIU/mL (0.358-3.74)
[2024-04-05] MEDS: 0.9% Saline Lock 10 ML Syringe IV (06:31)
[2024-04-05] MEDS: Potassium Phosphate 40 MM in 0.9% Normal Saline (500mL Bag) 500 ML 62.5 MM IV (06:32)
[2024-04-05 09:06] LABS: Vitamin B12 1523 pg/mL (211-911)
[2024-04-05 09:48] LABS: Ferritin 33 ng/mL (8-252); Iron 13 ug/dL (50-170); Iron Binding Capacity,Total 219 ug/dL (250-450); PERCENT IRON SATURATION 5.9 % (15.0-55.0)
[2024-04-05] MEDS: Enoxaparin 80 MG/0.8 ML Syringe 70 MG SC (10:24)
--- NOTE | 2024-04-05 11:30 | PCM.PN.HOSP ---
Reason for Visit Reason for Visit: Diagnoses Other disorders of phosphorus metabolism (04/04/24) Dehydration (04/04/24) Hypokalemia (04/04/24) Unspecified atrial fibrillation (04/04/24) Hypotension, unspecified (04/04/24) Acute kidney failure, unspecified (04/04/24) Diarrhea, unspecified (04/04/24) Syncope and collapse (04/04/24) Subjective Subjective Patient admitted yesterday evening for a syncopal event suspected to be secondary to new onset A-fib with RVR. Was found to have significant hypokalemia with hypophosphatemia suspected secondary to dehydration from recent bouts of diarrhea. Was also found to have an CHANDLER suspected to be prerenal. Patient was started on a Cardizem drip with fairly quick conversion back to normal sinus rhythm. Was started on therapeutic Lovenox for anticoagulation. Did have low blood pressures after conversion so was placed on the ICU on admission and aggressively repleted with IV fluids. I saw patient at the bedside this morning, daughter was present. At that time, patient was sitting up comfortably in bed, conversing normally, in no acute distress. Her blood pressure was much improved from overnight. Her heart rate was stable in normal sinus rhythm. Patient reported feeling much better currently than she did yesterday. She denies any episodes of diarrhea since admission. Denies any fevers or chills. No other acute concerns currently. Objective Data Objective Data Vital Signs: Vital Signs Temp Pulse Resp BP Pulse Ox O2 Del Method 98.4 F 75 23 H 108/59 L 100 Room Air 04/05/24 09:00 04/05/24 10:00 04/05/24 10:00 04/05/24 10:00 04/05/24 10:00 04/05/24 10:00 Oxygen Delivery Method Room Air Weight: 69.5 kg Body Mass Index (BMI) 25.5 Intake & Output: Intake and Output for Last 24 Hours 04/03/24 04/04/24 04/05/24 23:59 23:59 23:59 Intake Total 2300 / 2300 689.5 / 689.5 Output Total 200 / 200 550 / 550 Balance 2100 / 2100 139.5 / 139.5 Lab / Micro Data 04/05/24 03:15 04/05/24 03:15 Labs: Laboratory Results - last 24 hr 04/04/24 19:23: WBC 12.5 H, RBC 4.46, Hgb 11.1 L, Hct 34.7 L, MCV 77.8 L, MCH 24.9 L, MCHC 32.0, RDW Std Deviation 48.4 H, RDW Coeff of Deep 17.2 H, Plt Count 285, MPV 11.4, Immature Gran % (Auto) 0.400, Neut % (Auto) 84.0 H, Lymph % (Auto) 7.1 L, [place] % (Auto) 8.1, Eos % (Auto) 0.2, Baso % (Auto) 0.2, Absolute Neuts (auto) 10.5 H, Absolute Lymphs (auto) 0.88, Nucleated RBC % 0, Sodium 134 L, Potassium 2.5 L*, Chloride 102, Carbon Dioxide 20.0 L, Anion Gap 12, BUN 49 H, Creatinine 1.83 H, Estim Creat Clear Calc 27.02, Est GFR (MDRD) Af Amer 35 L, Est GFR (MDRD) Non-Af 29 L, BUN/Creatinine Ratio 26.8 H, Glucose 129 H, Calcium 7.6 L, Magnesium 2.6, Troponin I High Sens 58 H, TSH 3.62 04/04/24 20:03: Urine Color Yellow, Urine Clarity Clear, Urine pH 6.0, Ur Specific [place] 1.015, Urine Protein 15 H, Urine Glucose (UA) Normal, Urine Ketones 15 H, Urine Occult Blood Negative, Urine Nitrite Negative, Urine Bilirubin Negative, Urine Urobilinogen Normal, Ur Leukocyte Esterase Negative, Urine RBC 0 SEEN, Urine WBC 0 SEEN, Ur Squamous Epith Cells 0-5 SEEN, Urine Bacteria 0 SEEN, Urine Mucus 0 SEEN 04/04/24 21:15: Troponin I High Sens 33, Prealbumin 7.9 L, Triglycerides 69, Cholesterol 54, LDL Cholesterol 17, VLDL Cholesterol 14, HDL Cholesterol 23 L 04/05/24 03:15: WBC 11.2 H, RBC 4.27, Hgb 10.6 L, Hct 33.4 L, MCV 78.2 L, MCH 24.8 L, MCHC 31.7 L, RDW Std Deviation 49.1 H, RDW Coeff of [place] 17.4 H, Plt Count 253, MPV 10.6, Immature Gran % (Auto) 0.400, Neut % (Auto) 75.2 H, Lymph % (Auto) 13.4 L, [place] % (Auto) 9.3, Eos % (Auto) 1.3, Baso % (Auto) 0.4, Absolute Neuts (auto) 8.4 H, Absolute Lymphs (auto) 1.50, Nucleated RBC % 0, Sodium 137, Potassium 3.8, Chloride 110 H, Carbon Dioxide 20.0 L, Anion Gap 7, BUN 41 H, Creatinine 1.34 H, Estim Creat Clear Calc 37.12, Est GFR (MDRD) Af Amer 50 L, Est GFR (MDRD) Non-Af 41 L, BUN/Creatinine Ratio 30.6 H, Glucose 116 H, Calcium 7.4 L, Phosphorus 1.8 L, Magnesium 2.3, Total Bilirubin 0.30, AST 13 L, ALT 16, Alkaline Phosphatase 58, Total Protein 5.6 L, Albumin 2.9 L, Globulin 2.7, Albumin/Globulin Ratio 1.1, TSH 1.66 04/05/24 08:25: Iron 13 L, TIBC 219 L, Iron Saturation 5.9 L, Ferritin 33, Vitamin B12 1523 H, Folate 51.80 Micro: Microbiology 04/04/24 22:39 Stool Stool Lactoferrin - Final 04/04/24 22:39 Stool Enteric Bacteriology - Final 04/04/24 22:39 Stool Clostridioides difficile (PCR) - Final Radiography Diagnostic Testing: Radiology Impression Chest X-Ray 04/04/24 19:30 IMPRESSION: Hiatal hernia. Electronically Signed: Phillip Monahan DO at 19:41 EDT Reading Location ID and State: [facility] / [place] Tel [phone], Service support , Physical Exam Const alert, oriented x3, no apparent distress and average body habitus Constitutional Narrative: Elderly female, sitting up comfortably in bed, conversing normally, in no acute distress. General Appearance: cooperative and comfortable HEENT normocephalic, head/scalp atraumatic, hearing grossly normal bilaterally, nasal mucous membranes and turbinates normal and moist oral mucous membranes Eyes PERRL, EOMs intact bilaterally and conjunctivae normal Neck full ROM Chest inspection of chest normal Resp normal respiratory effort, normal air movement, no use of accessory muscles and clear to auscultation bilaterally Cardio regular rate, regular rhythm, no murmurs and peripheral pulses 2+ throughout GI normal to inspection, nondistended, normoactive bowel sounds, soft to palpation, non-tender and non-distended Back/Spine normal ROM Extremity normal to inspection, full ROM and no pedal edema Skin no rashes or lesions noted Neuro no focal motor deficits and no sensory deficits noted Speech: speech normal Psych mental status grossly normal Assessment & Plan Assessment/Plan (1) Atrial fibrillation with RVR: (2) Acute kidney injury: (3) Acute hypokalemia: (4) Diarrhea: QUALIFIERS: Diarrhea type: presumed infectious Qualified Code(s): R19.7 - Diarrhea, unspecified PLAN: Plan Patient is a 73-year-old female who presented [facility] ED on 04/04/2024 with new onset A-fib with RVR and a syncopal event at home. 1. New onset A-fib with RVR with orthostatic hypotension ? Noted to be in A-fib with RVR to the 140s on admit. No prior history of A-fib. Suspect that recent diarrhea with significant hypokalemia was playing a large role. Placed on Cardizem drip in the ED with conversion back to normal sinus rhythm. Hypotensive postconversion and admitted to the ICU. Hypotension resolved with IV fluids. Patient in normal sinus rhythm to borderline sinus bradycardia postconversion. Echo 04/05 showed EF 60%, mild concentric LV hypertrophy, mild biatrial dilation, elevated RVSP of 57 mmHg, otherwise unremarkable. [id number] score of 3 (age, female, HTN). Therapeutic Lovenox on admit, patient agreeable to switching to Eliquis, Eliquis 5 mg twice daily started on evening of 04/05. Will hold on starting any rate controlling agents given borderline sinus bradycardia, clear inciting factor for A-fib with RVR and no recurrence to this point. Stable for transfer out of the ICU on 04/05. If remains stable overnight, likely okay for discharge home on 04/06. 2. Hypokalemia, hypophosphatemia ? Potassium 2.5, phosphorus 1.8 on admit. Presumed secondary to recent diarrhea. Aggressively repleted on admission. Monitor daily BMP and replete as needed. 3. CHANDLER, improving ? Creatinine 1.83 on admit, improved to 1.34 on hospital day 2 after IV fluid administration. Baseline unknown. Has had good urine output. Monitor daily BMP. 4. Recent diarrhea ? Possibly secondary to mild viral gastroenteritis versus due to food intake that did not sit well with her per the patient. No episodes of diarrhea since admission. Noninfectious appearing. No need for stool PCR testing at this time. 5. Hypertension ? Home regimen of amlodipine 5 mg daily and lisinopril 20 mg daily. Holding for now, will restart when able. DVT prophylaxis: Eliquis CODE STATUS: DNR CCA, DNI Expected disposition: Home, 1 to 2 days Total clinical time spent by myself addressing the patient's medical issues, reviewing all the data, and collaborating with patient's care team: 35 minutes. Charges/Coding Visit Charges Inpatient E&M: 79830 Subs Hosp L2
--- NOTE | 2024-04-05 11:32 | CASEMGMT ---
RN CM Assessment Face to Face with patient for initial transition planning/care coordination assessment. RN CM introduced self and role at [facility], pt voices understanding. Pt is A&Ox4 and is resting comfortably in bed and is calm. Pt daughter at bedside. Care providers, pharmacy, and demographics verified. Admitting dx: AFIB with RVR, Hypotension, Syncope LACE Strata: 1 PCP: Elian Echols Specialists: Denies Preferred Pharmacy: [facility] Insurance: [employer] Prescription Benefit: Yes LNOK: Meron Beth (Daughter), William Barros (Son) Living Arrangements: Pt lives alone in a single story home with a BM and 2 steps to enter ADLs/IADLs: States ind Transportation: Self DME: BP cuff, FWW and cane but states that she does not use. HHC/SNF: Denies history or needs Pt?s goal: Home Plan: 6-Click is 22. Pt was cleared by PT. Pt denies the need for HHC or OP Tx. Pt states that she feels safe returning home once she is medically ready. CM to follow for anticoagulant costs. CM to follow to ensure safe DC home from [facility]. Amy Thomas RN, CM
[2024-04-05] MEDS: Ensure Plus High Protein 120 ML LIQUID PO (12:19)
[2024-04-05] MEDS: Sodium Ferric Gluconat 250 MG in 0.9% Normal Saline 250 ML 135 MG IV (15:07)
[2024-04-05] MEDS: APIXABAN 5 MG TABLET PO (21:12)
[2024-04-06 03:05] VITALS: BP 115/52; PULSE 59; RESP 16; TEMP 36.7; O2SAT 97
[2024-04-06 07:47] LABS: Albumin, Serum 2.5 g/dL (3.2-5.0); Anion Gap 5 (5-15); BUN 23 mg/dL (7-18); BUN/Creat Ratio 24.3 RATIO (10-20); Calcium,Total 7.3 mg/dL (8.5-10.1); Chloride 113 mmol/L (98-107); Creatinine, Serum 0.95 mg/dL (0.55-1.02); EST Glomerular Filtration Rate 62 mL/min (>60); Est Glom Filt Rate - Afr Amer 75 mL/min (>60); Estimated Creatinine Clearance 52.39 ml/min; Glucose 87 mg/dL (74-106); Phosphorus 1.6 mg/dL (2.5-4.9); Potassium 3.9 mmol/L (3.5-5.1); Sodium Level 138 mmol/L (136-145)
[2024-04-06 09:05] VITALS: BP 123/56; PULSE 79; RESP 18; TEMP 36.8; O2SAT 100
[2024-04-06] MEDS: Na Biphos/Potassium Phosphate PACKET 1 PACKET PO ×2 (09:25→12:23)
[2024-04-06] MEDS: APIXABAN 5 MG TABLET PO (09:25)
[2024-04-06 09:54] LABS: Hematocrit 31.2 % (37-47); Hemoglobin 9.7 g/dL (12.0-15.0); Mean Corp Hgb Conc 31.1 g/dL (32-36); Mean Corpuscular Hgb 25.1 pg (27.0-32.0); Mean Corpuscular Volume 80.8 fL (81-99); Mean Platelet Vol. 11.7 fl (6.2-12.0); Platelet Count 225 K/mm3 (150-450); RBC Distribution Width CV 18.1 % (11.6-14.6); RBC Distribution Width SD 52.9 fl (35.1-43.9); Red Blood Count 3.86 M/mm3 (4.2-5.4); White Blood Count 8.7 K/mm3 (4.4-11.0)
[2024-04-06] MEDS: 0.9% Saline Lock 10 ML Syringe IV ×2 (10:05→12:23)
[2024-04-06] MEDS: Sodium Ferric Gluconat 250 MG in 0.9% Normal Saline 250 ML 135 MG IV (10:05)
[2024-04-06 10:52] VITALS: O2SAT 95
--- NOTE | 2024-04-06 12:29 | DS.PCM_ITS ---
Providers Date of Admission: 04/04/24 Date of Discharge: 04/06/24 Primary Care Physician: Dr. Lidia Nieto MD Reason For Visit: AFIB WITH RVR/SEVERE HYPOTENSION/SYNCOPE/ARF 2/2 D Diagnosis Discharge Diagnosis (1) Atrial fibrillation with RVR: Status: Acute Code(s): I48.91 - Unspecified atrial fibrillation (2) Acute kidney injury: Status: Acute Code(s): N17.9 - Acute kidney failure, unspecified (3) Acute hypokalemia: Status: Acute Code(s): E87.6 - Hypokalemia (4) Diarrhea: Status: Acute Code(s): R19.7 - Diarrhea, unspecified Qualifiers: Diarrhea type: presumed infectious Qualified Code(s): R19.7 - Diarrhea, unspecified Medications at Discharge Home Medications amlodipine 5 mg tablet 5 mg PO DAILY htn 04/04/24 lisinopril 20 mg tablet 20 mg PO DAILY htn 04/04/24 apixaban 5 mg tablet (Eliquis) 5 mg PO BID 30 days #60 tabs 04/06/24 Hospital Course Operations None Procedures EKG, Transthoracic echo and - (Chest x-ray, carotid duplex ultrasound) Summary of Care Provided Minutes Spent on Discharge: 35 Hospital Course: Patient is a 73-year-old female who presented [facility] ED on 04/04/2024 with new onset A-fib with RVR and a syncopal event at home. Hospital course as noted below. Patient discharged home in stable condition on 04/06. 1. New onset A-fib with RVR with orthostatic hypotension ? Noted to be in A-fib with RVR to the 140s on admit. No prior history of A- fib. Suspect that recent diarrhea with significant hypokalemia was playing a large role. Placed on Cardizem drip in the ED with conversion back to normal sinus rhythm. Hypotensive postconversion and admitted to the ICU. Hypotension resolved with IV fluids. Patient remained in normal sinus rhythm to borderline sinus bradycardia postconversion. Echo 04/05 showed EF 60%, mild concentric LV hypertrophy, mild biatrial dilation, elevated RVSP of 57 mmHg, otherwise unremarkable. [id number] score of 3 (age, female, HTN). Therapeutic Lovenox on admit, patient agreeable to switching to Eliquis, Eliquis 5 mg twice daily started on evening of 04/05. Patient had no recurrence of A-fib for remainder of hospitalization. Will discharge patient on Eliquis and with 30-day cardiac event monitor. If she has no recurrence of A-fib on the event monitor, may not need to be on Eliquis long-term but would recommend that she discuss this further with cardiology in the office. Did not start any rate controlling agents on discharge as she was in normal sinus rhythm with heart rate around 60. 2. Hypokalemia, hypophosphatemia ? Potassium 2.5, phosphorus 1.8 on admit. Presumed secondary to recent diarrhea. Aggressively repleted on admission with good improvement. 3. CHANDLER, improved ? Creatinine 1.83 on admit, baseline unknown. Improved to creatinine 0.95 on day of discharge, suspect this may be close to her baseline. Had good urine output during hospitalization. 4. Recent diarrhea, resolved ? Possibly secondary to mild viral gastroenteritis versus due to food intake that did not sit well with her per the patient. No episodes of diarrhea during hospitalization, was noninfectious appearing. No need for stool PCR testing. 5. Hypertension ? Home regimen of amlodipine 5 mg daily and lisinopril 20 mg daily. Remained normotensive on day of discharge, recommended that she hold both amlodipine and lisinopril for now and check blood pressure on a daily basis for the next week and restart home medications as needed. Total clinical time spent by myself addressing the patient's medical issues, reviewing all the data, and collaborating with patient's care team: 35 minutes. Physical Exam Const alert, oriented x3, no apparent distress and average body habitus Constitutional Narrative: Elderly female, sitting up comfortably in bed, conversing normally, in no acute distress. General Appearance: cooperative and comfortable HEENT normocephalic, head/scalp atraumatic, hearing grossly normal bilaterally, nasal mucous membranes and turbinates normal and moist oral mucous membranes Eyes PERRL, EOMs intact bilaterally and conjunctivae normal Neck full ROM Chest inspection of chest normal Resp normal respiratory effort, normal air movement, no use of accessory muscles and clear to auscultation bilaterally Cardio regular rate, regular rhythm, no murmurs and peripheral pulses 2+ throughout GI normal to inspection, nondistended, normoactive bowel sounds, soft to palpation, non-tender and non-distended Back/Spine normal ROM Extremity normal to inspection, full ROM and no pedal edema Skin no rashes or lesions noted Neuro no focal motor deficits and no sensory deficits noted Speech: speech normal Psych mental status grossly normal Weight / BMI Weight Weight: 69.5 kg Body Mass Index (BMI) 25.5 ABG / Lab / Microbiology Data 04/06/24 06:28 04/06/24 06:28 Laboratory: Laboratory Results - last 24 hr 04/06/24 06:28: WBC 8.7, RBC 3.86 L, Hgb 9.7 L, Hct 31.2 L, MCV 80.8 L, MCH 25.1 L, MCHC 31.1 L, RDW Std Deviation 52.9 H, RDW Coeff of Deep 18.1 H, Plt Count 225, MPV 11.7, Sodium 138, Potassium 3.9, Chloride 113 H, Carbon Dioxide 20.0 L, Anion Gap 5, BUN 23 H, Creatinine 0.95, Estim Creat Clear Calc 52.39, Est GFR (MDRD) Af Amer 75, Est GFR (MDRD) Non-Af 62, BUN/Creatinine Ratio 24.3 H, Glucose 87, Calcium 7.3 L, Phosphorus 1.6 L, Albumin 2.5 L Microbiology: Microbiology 04/04/24 22:39 Stool Stool Lactoferrin - Final 04/04/24 22:39 Stool Enteric Bacteriology - Final 04/04/24 22:39 Stool Clostridioides difficile (PCR) - Final Radiography Diagnostic Testing: Radiology Impression Echocardiogram 04/04/24 21:15 Interpretation Summary Mild concentric left ventricular hypertrophy. The left ventricular ejection fraction is 60 %. There is mild biatrial dilatation. Moderate (2+) tricuspid valve insufficiency. Right ventricular systolic pressure estimated to be 57 mmHg. Ordering Physician: Alexandre So Referring Physician: LIDIA NIETO Performed By: Flory Vitale RCS Carotid Duplex 04/05/24 01:27 Interpretation Summary Irregular plaque with shadowing at the proximal right internal carotid artery with less than 50% stenosis. Close to the 50% range. Less than 50% stenosis right external carotid artery Irregular plaque at the proximal left internal carotid artery with less than 50% stenosis Less than 50% stenosis left external carotid artery Patent and antegrade vertebral arteries bilaterally Ordering Physician: Alexandre So Referring Physician: Lidia Nieto Performed By: Ameena Muñoz RDCS, RVT Meaningful Use Info Meaningful Use Meaningful Use Diagnoses (Choose all that apply): None applicable Ischemic Stroke Statin Dosing Therapy Reference: STATIN DOSE THERAPY REFERENCE: * Patients > 75 years receive moderate or high dose statin therapy. * Patients 75 years or YOUNGER should receive HIGH intensity statin dose unless contraindicated. You will be required to document reason for non-treatment if statin daily dose does not meet guidelines. HIGH DOSE STATIN THERAPY DAILY Atorvastatin > than or = to 40 mg Rosuvastatin > than or = to 20 mg Amlodipine + Atorvastatin > than or = to 2.5/40 mg Ezetimibe + Simvastatin 10/80 mg Simvastatin 80mg Discharge Plan Admission Admit Date/Time: 04/04/24 20:51 Primary Reason for Your Visit: Lightheadedness and dizziness Attending Provider: Pranav Wang Primary Care Provider: Lidia Nieto Consulting Providers: Alexandre So Instructions Additional Instructions / Restrictions: Please start taking Eliquis twice daily as a blood thinner for A-fib. The 30- day heart monitor will be sent in the mail to you, please use as instructed. Hold off on taking your blood pressure medications for now and check your blood pressure once a day for the next several days, then restart amlodipine if needed. Discharge Orders/Prescriptions Prescriptions: New Eliquis 5 mg Tablet 5 mg PO BID 30 Days Qty: 60 2RF Held amlodipine 5 mg tablet 5 mg PO DAILY Hold Instructions: Resume on 04/12/24. lisinopril 20 mg tablet 20 mg PO DAILY Hold Instructions: Resume on 04/12/24. Other Ambulatory Orders: 30 Day Event Recorder Preventi (Urgent) Timeframe: 1 Month Facility: [facility] - Location: Cardiovascular Services Ordered By: Dr. Pranav Wang Referrals / Follow Up: Lidia Nieto MD [Primary Care Provider] - Disposition Disposition (needs filled in before D/C Order can be placed): Home, Self Care Charges/Coding Visit Charges Inpatient E&M: 64898 Disch Hosp >30min
--- NOTE | 2024-04-06 12:29 | PCM.DC ---
Discharge Instructions Diet Discharge Diet: No restrictions Activity Discharge Activity: No Restrictions Follow Up Care Test Results: Test results from this visit will be discussed in further detail at your follow-up appointment, if applicable. Discharge Plan Admission Admit Date/Time: 04/04/24 20:51 Primary Reason for Your Visit: Lightheadedness and dizziness Attending Provider: Pranav Wang Primary Care Provider: Elian Echols Consulting Providers: Alexandre So Instructions Additional Instructions / Restrictions: Please start taking Eliquis twice daily as a blood thinner for A-fib. The 30-day heart monitor will be sent in the mail to you, please use as instructed. Hold off on taking your blood pressure medications for now and check your blood pressure once a day for the next several days, then restart amlodipine if needed. Discharge Orders/Prescriptions Prescriptions: New Eliquis 5 mg Tablet 5 mg PO BID 30 Days Qty: 60 2RF Held amlodipine 5 mg tablet 5 mg PO DAILY Hold Instructions: Resume on 04/12/24. lisinopril 20 mg tablet 20 mg PO DAILY Hold Instructions: Resume on 04/12/24. Other Ambulatory Orders: 30 Day Event Recorder [employer] (Urgent) Timeframe: 1 Month Facility: [facility] - Location: Cardiovascular Services Ordered By: Dr. Pranav Wang Referrals / Follow Up: Elian Echols MD [Primary Care Provider] - Disposition Disposition (needs filled in before D/C Order can be placed): Home, Self Care
--- NOTE | 2024-04-06 13:05 | CASEMGMT ---
Patient has order for discharge. Patient discharging on Eliquis, BLAINE MERCADO called [facility] and copay is $47. RN CM in to discuss needs at discharge with patient. RN CM updated patient of Eliquis copay and patient would like to use savings card. Patient denies needs or help at discharge. Patient had no further questions or concerns. BLAINE MERCADO called [facility] [employer] and asked to apply Eliquis savings card.
--- NOTE | 2024-04-06 13:47 | PHA.DC.MC.R ---
Pharmacy [facility] has performed discharge medication reconciliation and counseling for this patient. Patient requested meds to beds, this [facility] called retail pharmacy and requested delivery. 1. APIXABAN 5MG PO BID 2. HOLD LISINOPRIL AND AMLODIPINE The patient's discharge medication list was reviewed for discrepancies and discrepancies were resolved. The patient was counseled on the following discharge medications and changes in medications for homegoing were reviewed. The Reason for Use, instructions for use, and potential side effects were reviewed for all new medications. The patient's questions regarding all of their medications were answered. The patient was able to verbally demonstrate an understanding of their discharge medications. Patient counseled by student specialistXu. Medications at Discharge Home Medications amlodipine 5 mg tablet 5 mg PO DAILY htn 04/04/24 lisinopril 20 mg tablet 20 mg PO DAILY htn 04/04/24 apixaban 5 mg tablet (Eliquis) 5 mg PO BID 30 days #60 tabs 04/06/24
[2024-04-06 14:00] VITALS: BP 134/73; PULSE 97; RESP 18; TEMP 36.7; O2SAT 99
== END 2024-04-06 14:02 | disposition home or self-care (01) | DRG 309 ==
LOC: ED 20:22 → PCU 20:48 → ICU 21:04 → PCU 04-05 14:21
PROVIDERS: Physician Assistant; Admitting Provider Internal Medicine; Emergency Provider Emergency Medicine; PCP Family Medicine; Visit Provider Hospitalist
DX: I48.91 Unspecified atrial fibrillation (principal); N17.9 Acute kidney failure, unspecified; I24.89 Other forms of acute ischemic heart disease; E83.39 Other disorders of phosphorus metabolism; I10 Essential (primary) hypertension; E86.0 Dehydration; E78.5 Hyperlipidemia, unspecified; E87.6 Hypokalemia; I95.1 Orthostatic hypotension; R00.1 Bradycardia, unspecified; A08.4 Viral intestinal infection, unspecified; Z66 Do not resuscitate
CPT/HCPCS: 36415; 71045; 80048; 80053; 80061; 80069; 81001; 82607; 82728; 82746; 83540; 83550; 83630; 83735; 84100; 84134; 84443; 84484; 85025; 85027; 87177; 87209; 87493; 87506; 93005; 93306; 93880; 97162; 97166; 97802; 99285; J7030; J7040; J7050; A4216; J2916

== ENCOUNTER → 2024-12-30 | Outpatient (CLI) | payer MEDICARE, SELFPAY ==
--- NOTE | 2024-12-30 10:51 | ECHOL_ITS ---
Reason For Study Reason For Study: Evaluate RVSP Procedure This was a limited 2D transthoracic echocardiogram. Exam performed in department. Left Ventricle Normal LV size. Left ventricular systolic function is normal. The left ventricular ejection fraction is 65 %. No regional wall motion abnormalities noted. Right Ventricle Normal RV size. Normal systolic function. Atria Normal left atrium. Normal right atrium. Mitral Valve Normal mitral valve. Mild focal mitral valve thickening. Mild (1+) eccentric mitral valve insufficiency. Tricuspid Valve Normal tricuspid valve. Mild (1+) tricuspid valve insufficiency. Pulmonary artery systolic pressure is 42 mmHg. Aortic Valve Normal aortic valve. Pulmonic Valve Normal pulmonic valve. Great Vessels Normal aortic root. The pulmonary artery is normal size. Inferior vena cava collapse with respiration. Pericardium/Pleural No pericardial effusion. MMode/2D Measurements & Calculations LVIDd: 4.8 cm IVSd: 1.3 cm LAV(MOD- bp): 69.0 ml LVIDs: 3.5 cm LVPWd: 0.83 cm LAV(MOD- bp) Indexed: 39.7 ml/m2 RVDd: 4.2 cm FS: 26.5 % LAV(MOD- sp2): 59.1 ml LAV(MOD- sp4): 79.7 ml SV(MOD-sp4): 43.5 ml SV(sp4- el): 44.4 ml LVAd ap4: 23.1 cm2 LVLd ap4: 6.6 cm SI(MOD-sp4): 25.1 ml/m2 EDV(MOD-sp4): 67.7 ml EDV(sp4-el): 68.2 ml LVAs ap4: 12.4 cm2 LVLs ap4: 5.5 cm ESV(MOD-sp4): 24.2 ml ESV(sp4-el): 23.8 ml EF(MOD-sp4): 64.3 % EF(sp4-el): 65.1 % LA A4 area: 23.3 cm2 RA A4 area: 20.4 cm2 TAPSE: 2.3 cm Doppler Measurements & Calculations MR max armando: 539.7 cm/sec PA V2 max: 92.8 cm/sec TR max armando: 308.7 cm/sec MR max P.5 mmHg TR max P.1 mmHg ECHO/Echo, Limited Study Interpretation Summary Normal LV size. Left ventricular systolic function is normal. The left ventricular ejection fraction is 65 %. Mild (1+) eccentric mitral valve insufficiency. Mild focal mitral valve thickening. Ordering Physician: Ramírez Muñoz Referring Physician: Ramírez Muñoz Performed By: Mulugeta Arguello RCS
== END | disposition home or self-care (01) ==
LOC: CVS 10:50
PROVIDERS: PCP Family Medicine; Referring Provider Nurse Practitioner Family; Visit Provider Nurse Practitioner Family
DX: I27.21 Secondary pulmonary arterial hypertension (principal)
CPT/HCPCS: 93308